=== PATIENT | female | born 1975 | race Caucasian/White ===

== ENCOUNTER 2017-04-29 08:15 | Inpatient (IN) | payer SELFPAY ==
[~2017-04-29] VITALS: Ht 170 cm; Wt 129.5 kg
[2017-04-29 09:30] LABS: BILIRUBIN NEGATIVE (NEGATIVE); BLOOD TRACE-INTACT Ery/uL (NEGATIVE); CLARITY CLEAR (CLEAR); COLOR YELLOW (YELLOW); GLUCOSE (U) NORMAL (NORMAL); KETONE (U) TRACE mg/dL (NEGATIVE); LEUKOCYTES NEGATIVE Leu/uL (NEGATIVE); NITRITE NEGATIVE (NEGATIVE); PROTEIN NEGATIVE (NEGATIVE); SPECIFIC GRAVITY 1.025 (1.001-1.030); UROBILINOGEN 0.2 mg/dL (0.2-1.0)
[2017-04-29 15:43] LABS: AMORPHOUS URATES CRYSTALS LARGE; SQUAMOUS EPITHELIAL CELLS RARE; URINARY RBC RARE; URINARY WBC RARE
[2017-04-30 04:19] LABS: HCT 33.7 % (37.0-47.0); HGB 10.6 g/dl (12.5-16.0); MCHC 31.5 g/dL (32.0-36.0); MCV 85.8 fL (78.0-100.0); MPV 8.7 fL (6.0-9.5); RBC 3.93 M/uL (4.20-5.40); RDW 14.1 % (11.5-14.0); WBC 13.1 K/uL (4.0-10.5)
[2017-04-30 04:39] LABS: CREATININE 0.6 mg/dL (0.5-1.0); POTASSIUM 4.2 mmol/L (3.5-5.1)
[2017-05-01] MEDS ORDERED: ZOFRAN ODT4 MG SL (18:08)
== END 2017-05-01 19:47 | disposition home or self-care (01) | DRG 621 ==
LOC: FMS 08:15 → FTCU 11:08
PROVIDERS: ADMIT Surgery
PROC: 0DB64Z3 Excision of Stomach, Percutaneous Endoscopic Approach, Vertical (ICD-10-PCS; principal; 2017-04-29 08:15)
PROC: 0DJ08ZZ Inspection of Upper Intestinal Tract, Via Natural or Artificial Opening Endoscopic (ICD-10-PCS; 2017-04-29 08:15)
DX: E66.01 Morbid (severe) obesity due to excess calories (principal); R13.10 Dysphagia, unspecified; E55.9 Vitamin D deficiency, unspecified; Z68.41 Body mass index [BMI] 40.0-44.9, adult; D64.9 Anemia, unspecified; F41.9 Anxiety disorder, unspecified; F32.9 Major depressive disorder, single episode, unspecified; E78.5 Hyperlipidemia, unspecified; K21.9 Gastro-esophageal reflux disease without esophagitis; E28.2 Polycystic ovarian syndrome; G47.33 Obstructive sleep apnea (adult) (pediatric)
CPT/HCPCS: 36415; 74240; 80048; 81001; 82150; 84703; 86850; 86900; 86901; 88307; 94010; J0131; J0690; J1100; J1170; J1885; J2405; J2704; J2710; J3010; J3411; J3475

== ENCOUNTER 2022-01-22 09:03 | Emergency (ER) | payer OTHER ==
[~2022-01-22] VITALS: Ht 170.2 cm; Wt 113.4 kg
[~2022-01-22 09:03] MED LIST: CELEXA20 MG PO; IBUPROFEN800 MG PO; VOLTAREN **OUT50 MG PO; ZOFRAN ODT4 MG SL
[2022-01-22] MEDS ORDERED: KEFLEX250 MG PO (10:48)
== END 2022-01-22 11:08 | disposition home or self-care (01) ==
LOC: FER 09:03
DX: S62.665A Nondisplaced fracture of distal phalanx of left ring finger, initial encounter for closed fracture (principal); Z23 Encounter for immunization; W01.0XXA Fall on same level from slipping, tripping and stumbling without subsequent striking against object, initial encounter; W20.8XXA Other cause of strike by thrown, projected or falling object, initial encounter; Y92.410 Unspecified street and highway as the place of occurrence of the external cause
CPT/HCPCS: 73140; 90471; 90715

== ENCOUNTER 2022-02-02 14:41 | Emergency (ER) | payer OTHER ==
[~2022-02-02 14:41] MED LIST changes: +KEFLEX250 MG PO
[2022-02-02 16:27] LABS: BASOPHIL 0.7 % (0-2); EOSINOPHIL 0 % (0-5); HGB 15.1 g/dl (12.5-16.0); LYMPHOCYTE 29.9 % (15-48); MCHC 32.1 g/dL (32.0-36.0); MCV 90.4 fL (78.0-100.0); MONOCYTE 5.2 % (0-12); MPV 9.6 fL (6.0-9.5); NEUTROPHIL 63.8 % (41-80); NRBC 0; PLT 346 K/uL (150-400); RDW 12.8 % (11.5-14.0); WBC 13.2 K/uL (4.0-10.5)
[2022-02-02 16:47] LABS: ALBUMIN 4.4 g/dL (3.4-5.0); BILIRUBIN - TOTAL 0.6 mg/dL (0.2-1.0); CREATININE 0.8 mg/dL (0.51-0.95); GLOBULIN (CALCULATION) 3.9 g/dL; POTASSIUM 3.8 mmol/L (3.5-5.1); TOTAL PROTEIN 8.3 g/dL (6.4-8.2)
[2022-02-02] MEDS ORDERED: XANAX0.5 M1 PO (17:08)
== END 2022-02-02 17:22 | disposition home or self-care (01) ==
LOC: FER 14:41
PROVIDERS: Emergency Medicine
DX: R07.89 Other chest pain (principal)
CPT/HCPCS: 36415; 71045; 80053; 84484; 85025; 93005